=== PATIENT | male | born 1985 | race Two or more races ===

== ENCOUNTER 2019-05-01 12:04 | Emergency (ER) | payer SELFPAY ==
[~2019-05-01] VITALS: Ht 188 cm; Wt 83.0 kg
[2019-05-01 12:37] LABS: BASOPHILS # (AUTO) 0.1 X10'3 (0-0.2); BASOPHILS % (AUTO) 1.1 % (0-1); EOSINOPHILS % (AUTO) 0.4 % (0-6); HEMATOCRIT 51.5 % (42.0-52.0); HEMOGLOBIN 17.7 g/dl (14.0-17.9); LYMPHOCYTES # (AUTO) 2.2 X10'3 (1.1-4.8); LYMPHOCYTES % (AUTO) 33.1 % (21-51); MEAN CORPUSCULAR HGB CONC 34.4 g/dL (33.0-36.5); MEAN CORPUSCULAR VOLUME 92.9 FL (78-98); MEAN PLATELET VOLUME 6.1 FL (7.4-10.4); MONOCYTES # (AUTO) 0.4 X10'3 (0-0.9); MONOCYTES % (AUTO) 5.8 % (2-12); NEUTROPHILS # (AUTO) 3.9 X10'3 (1.8-7.7); NEUTROPHILS % (AUTO) 59.6 % (42-75); PLATELET COUNT 266 X10'3 (140-440); RED BLOOD COUNT 5.54 X10'6 (4.70-6.10); RED CELL DISTRIBUTION WIDTH 12.9 % (11.5-14.5); WHITE BLOOD COUNT 6.6 X10'3 (4.5-11.0)
[2019-05-01 12:55] LABS: ALANINE AMINOTRANSFERASE 84 U/L (12-78); ALBUMIN 4.3 G/DL (3.4-5.0); ALBUMIN/GLOBULIN RATIO 0.9 (1.1-1.5); ALKALINE PHOSPHATASE 83 IU/L (46-116); ANION GAP 12 (8-16); ASPARTATE AMINO TRANSFERASE 89 U/L (10-37); BILIRUBIN,TOTAL 0.4 MG/DL (0.1-1.0); BLOOD UREA NITROGEN 8 MG/DL (7-18); BUN/CREATININE RATIO 8.9 (5.4-32.0); CALCIUM 9.1 MG/DL (8.5-10.1); CHLORIDE 101 MMOL/L (99-107); GLUCOSE 96 MG/DL (70-104); POTASSIUM 3.7 MMOL/L (3.5-5.1); SODIUM 142 MMOL/L (135-145); eGFR > 90 ML/MIN
[2019-05-01] MEDS ORDERED: normal saline 1000ML IV soln IVB ONE (14:15)
[2019-05-01] MEDS ORDERED: LORazepam 2 mg/ml vial IV ONE (14:15)
--- NOTE | 2019-05-01 14:55 | NUR ---
PRIMARY RN WAS SENT ON A BREAK
[2019-05-01 14:57] VITALS: BP 149/86
[2019-05-01] MEDS ORDERED: CHLO25CA10 PO (15:30)
== END 2019-05-01 16:02 | disposition home or self-care (01) ==
LOC: ER 12:04
DX: F10.230 Alcohol dependence with withdrawal, uncomplicated (principal); R00.0 Tachycardia, unspecified; Y90.9 Presence of alcohol in blood, level not specified
CPT/HCPCS: 36415; 71045; 80053; 84484; 85025; 93005; 96374; 99284; J2060; J7030